=== PATIENT | male | born 1985 | race Caucasian/White ===

== ENCOUNTER 2017-11-14 21:02 | Emergency (ER) | payer BC ==
[2017-11-14] MEDS ORDERED: Famotidine 20 MG/2 ML SDV IVPUSH ONE (21:33)
--- NOTE | 2017-11-14 21:33 | EDM.PDOC ---
ED HPI GENERAL MEDICAL PROBLEM - General Chief Complaint: Allergic Reaction Stated Complaint: HIVES, SWOLLEN FINGERS AND LIPS- ALLERGIC REACTION Time Seen by Provider: 11/14/17 21:28 Source of Information: Reports: Patient History Limitations: Reports: No Limitations - History of Present Illness INITIAL COMMENTS - FREE TEXT/NARRATIVE: HISTORY AND PHYSICAL: History of present illness: Patient is a 32-year-old male who presents to the emergency room today with complaints of allergic reaction. Patient states that yesterday after eating supper he noticed some hives to his forearms bilaterally, abdomen and upper thighs. He has been using Benadryl to help alleviate his symptoms. He states that this did help "somewhat". Today after eating supper again he had some tightness/swelling sensation to his bilateral hands and tingling to his lips. He denies any difficulty breathing, it she throat or shortness of breath. He denies any fever, chills, chest pain, abdominal pain, nausea, vomiting, diarrhea or constipation. He does not take any prescribed medication and has only used Benadryl [id number]. Has had no new exposures and has no known food allergies. Review of systems: As per history of present illness and below otherwise all systems reviewed and negative. Past medical history: As per history of present illness and as reviewed below otherwise noncontributory. Surgical history: As per history of present illness and as reviewed below otherwise noncontributory. Social history: No reported history of drug or alcohol abuse. Family history: As per history of present illness and as reviewed below otherwise noncontributory. Physical exam: General: Well-developed and well-nourished 32-year-old male. Alert and oriented. Nontoxic appearing and in no acute distress. HEENT: Atraumatic, normocephalic, pupils equal and reactive bilaterally, negative for conjunctival pallor or scleral icterus, mucous membranes moist, throat clear, neck supple, nontender, trachea midline. No drooling or trismus noted. No meningeal signs Lungs: Clear to auscultation, breath sounds equal bilaterally, chest nontender. Heart: S1S2, regular rate and rhythm without overt murmur Abdomen: Soft, nondistended, nontender. Negative for masses or hepatosplenomegaly. Negative for costovertebral tenderness. Pelvis: Stable nontender. Genitourinary: Deferred. Rectal: Deferred. Skin: Nonspecific hive-like rash noted to the forearm bilaterally. Intact, warm , dry. No lesions noted. Extremities: Atraumatic, moves all extremities per self without difficulty or deficits. He is negative for cords or calf pain. Neurovascular unremarkable. Neuro: Awake, alert, oriented. Cranial nerves II through XII unremarkable. Cerebellum unremarkable. Motor and sensory unremarkable throughout. Exam nonfocal. Notes: Patient recently took 50 mg of Benadryl prior to arrival. I will give him some IV Solu-Medrol, Pepcid and IV fluids. His vital signs are stable. Oxygen saturation is within normal limits. Lung sounds are clear. Recently had 'Hand Foot and Mouth' - was not taking any medications for this. We'll give patient a Medrol Dosepak. We reviewed signs and symptoms that he should continue to observe for. Encouraged him to follow up with his primary care provider for further evaluation and management. He is agreeable to plan of care. He denies any further questions or concerns at this time. Diagnostics: [] Therapeutics: IV fluid, Pepcid, Solu-Medrol Impression: Hives Plan: 1. Please continue with Benadryl and [id number] Zantac as directed. 2. Take the Medrol dosepak as prescribed. 3. Avoid any hot showers as this may cause increased itching. 4. Continue to monitor for possible source of the allergic reaction. 5. Follow-up with your primary care provider in the next 1-2 days. Return to the ED as needed and as discussed. Definitive disposition and diagnosis as appropriate pending reevaluation and review of above. - Related Data Allergies Allergy/AdvReac Type Severity Reaction Status Date / Time No Known Allergies Allergy Verified 11/14/17 21:18 Home Meds: Home Meds . [No Known Home Meds] 11/14/17 [History] Past Medical History Musculoskeletal History: Reports: None - Past Surgical History Other Musculoskeletal Surgeries/Procedures:: left hand Social & Family History - Family History Family Medical History: Noncontributory - Tobacco Use Smoking Status *Q: Never Smoker Second Hand Smoke Exposure: No - Caffeine Use Caffeine Use: Reports: Coffee, Tea - Recreational Drug Use Recreational Drug Use: No ED ROS ALLERGIC REACTION - Review of Systems Review Of Systems: ROS reveals no pertinent complaints other than HPI. ED EXAM GENERAL NO PERIP PULSE - Physical Exam Exam: See Below (See dictation) Course - Vital Signs Last Recorded V/S: Last Vital Signs Temp 98.1 F 11/14/17 21:14 Pulse 94 11/14/17 21:14 Resp 18 11/14/17 21:14 BP 132/88 11/14/17 21:14 Pulse Ox 96 11/14/17 21:14 - Orders/Labs/Meds Orders: Active Orders 24 hr Category Date Time Status Sodium Chloride 0.9% [Normal Saline] 500 ml Med 11/14/17 21:45 Active IV STAT methylPREDNISolone Sod Succ [Solu-MEDROL] Med 11/14/17 21:45 Once 125 mg IVPUSH ONETIME ONE Medication Orders Sodium Chloride (Normal Saline) 500 mls @ 999 mls/hr IV STAT LEORA Methylprednisolone Sodium Succinate (Solu-Medrol) 125 mg IVPUSH ONETIME ONE Stop: 11/14/17 21:46 Meds: Medications Generic Name Dose Route Start Last Admin Trade Name Freq PRN Reason Stop Dose Admin Sodium Chloride 500 mls @ 999 mls/hr 11/14/17 21:45 Normal Saline IV STAT LEORA Methylprednisolone Sodium Succinate 125 mg 11/14/17 21:45 Solu-Medrol IVPUSH 11/14/17 21:46 ONETIME ONE Discontinued Medications Generic Name Dose Route Start Last Admin Trade Name Freq PRN Reason Stop Dose Admin Famotidine 20 mg 11/14/17 21:33 Pepcid IVPUSH 11/14/17 21:34 ONETIME ONE Departure - Departure Time of Disposition: 21:46 Disposition: Home, Self-Care 01 Clinical Impression: Hives - Discharge Information Referrals: PCP,None [Primary Care Provider] - Additional Instructions: The following information is given to patients seen in the emergency department who are being discharged to home. This information is to outline your options for follow-up care. We provide all patients seen in our emergency department with a follow-up referral. The need for follow-up, as well as the timing and circumstances, are variable depending upon the specifics of your emergency department visit. If you don't have a primary care physician on staff, we will provide you with a referral. We always advise you to contact your personal physician following an emergency department visit to inform them of the circumstance of the visit and for follow-up with them and/or the need for any referrals to a consulting specialist. The emergency department will also refer you to a specialist when appropriate. This referral assures that you have the opportunity for follow-up care with a specialist. All of these measure are taken in an effort to provide you with optimal care, which includes your follow-up. Under all circumstances we always encourage you to contact your private physician who remains a resource for coordinating your care. When calling for follow-up care, please make the office aware that this follow-up is from your recent emergency room visit. If for any reason you are refused follow-up, please contact the [facility] Emergency Department at and asked to speak to the emergency department charge nurse. [facility] [address] [place] [id number] 1. Please continue with Benadryl and [id number] Zantac as directed. 2. Take the Medrol dosepak as prescribed. 3. Avoid any hot showers as this may cause increased itching. 4. Continue to monitor for possible source of the allergic reaction. 5. Follow-up with your primary care provider in the next 1-2 days. Return to the ED as needed and as discussed. - My Orders Last 24 Hours: My Active Orders 11/14/17 21:45 Sodium Chloride 0.9% [Normal Saline] 500 ml IV STAT methylPREDNISolone Sod Succ [Solu-MEDROL] 125 mg IVPUSH ONETIME ONE - Assessment/Plan Last 24 Hours: My Active Orders 11/14/17 21:45 Sodium Chloride 0.9% [Normal Saline] 500 ml IV STAT methylPREDNISolone Sod Succ [Solu-MEDROL] 125 mg IVPUSH ONETIME ONE
[2017-11-14] MEDS ORDERED: methylPREDNISolone Sodium Succinate 125 MG/2 ML SDV IVPUSH ONE (21:45)
[2017-11-14] MEDS ORDERED: Sodium Chloride 0.9% 500 ML IV SCH (21:45)
== END 2017-11-14 22:57 | disposition home or self-care (01) ==
LOC: MW.ED 21:02
DX: L50.9 Urticaria, unspecified (principal)
CPT/HCPCS: 96361; 96374; 96375; 99282; J2930; J7040; 99283

== ENCOUNTER 2017-12-10 20:57 | Emergency (ER) | payer BC ==
--- NOTE | 2017-12-10 21:00 | EDM.PDOC ---
ED HPI GENERAL MEDICAL PROBLEM - General Stated Complaint: FEVER AND COUPH Time Seen by Provider: 12/10/17 20:59 Source of Information: Reports: Patient History Limitations: Reports: No Limitations - History of Present Illness INITIAL COMMENTS - FREE TEXT/NARRATIVE: HISTORY AND PHYSICAL: History of present illness: 32 yo male presenting to the emergency department with chief complaint of cough , fever, and generalized fatigue 3 days. Patient states for the past month he has not been feeling well. 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 States that he did get kzmy-hjnh-tku-mouth disease 1 month ago. He seemed to have gotten better after that however has not fully recovered. Approximately 3 days ago he began to feel much worse. He has had a dry cough, headache, fever, and some intermittent diarrhea. He denies any nausea and vomiting. States that it's on Monday he felt feverish but went to work. When he got home from work he went to bed and slept for almost 22 hours. He felt significant fatigue since then. He denies any dysuria, hematuria, abdominal pain, bloody stool, or dark tarry stools, neck pain/nuchal rigidity and is up to date on vaccinations. Denies any chest pain, palpitations, shortness of breath, syncopal episodes, or focal neurologic deficits. His is not been having similar symptoms. Denies any recent foreign travel or camping. He has been using NyQuil as well as Mucinex and [place] cold with little relief. On initial exam patient is clammy and warm. There is some mild decrease in breath sounds in the left lower lobe. No nuchal rigidity noted. Otherwise benign exam. Patient was found to have a temperature 102.4 and 1000 mg of Tylenol were given. Review of systems: As per history of present illness and below otherwise all systems reviewed and negative. Past medical history: As per history of present illness and as reviewed below otherwise noncontributory. Surgical history: As per history of present illness and as reviewed below otherwise noncontributory. Social history: No reported history of drug or alcohol abuse. Family history: As per history of present illness and as reviewed below otherwise noncontributory. Physical exam: HEENT: Atraumatic, normocephalic, pupils reactive, negative for conjunctival pallor or scleral icterus, mucous membranes moist, throat clear, neck supple, nontender, trachea midline. Lungs: Lower lobe crackles, breath sounds equal bilaterally, chest nontender. Heart: S1S2, regular, negative for clicks, rubs, or JVD. Abdomen: Soft, nondistended, nontender. Negative for masses or hepatosplenomegaly. Negative for costovertebral tenderness. Pelvis: Stable nontender. Genitourinary: Deferred. Rectal: Deferred. Extremities: Atraumatic, negative for cords or calf pain. Neurovascular unremarkable. Neuro: Awake, alert, oriented. Cranial nerves II through XII unremarkable. Cerebellum unremarkable. Motor and sensory unremarkable throughout. Exam nonfocal. Diagnostics: CBC, CMP, chest x-ray, lactate, UA/UC Therapeutics: 1 L normal saline 1, Tylenol 1000 mg by mouth 1 Impression: Left lower lobe pneumonia community-acquired Plan: Chest x-ray did reveal a left lower lobe airspace disease consistent with pneumonia and this correlated with exam findings. CBC showed no leukocytosis this may be a viral pneumonia however I did give the patient 1 g of Rocephin as well as a prescription for azithromycin for suspected community acquired pneumonia. Lactate as well as CMP were unremarkable. Patient was discharged in good condition with instructions to follow-up with her primary care provider. I did give the patient numbers to reach them and follow-up early next week. Patient was discharged in good condition with instructions to return to emergency department if he had any new or worsening symptoms. Definitive disposition and diagnosis as appropriate pending reevaluation and review of above. head Pain Score (Numeric/FACES): 4 - Related Data Allergies Allergy/AdvReac Type Severity Reaction Status Date / Time Penicillins Allergy Cannot Verified 12/10/17 21:24 Remember Home Meds: Home Meds . [No Known Home Meds] 12/10/17 [History] Past Medical History Musculoskeletal History: Reports: None - Past Surgical History Other Musculoskeletal Surgeries/Procedures:: left hand Social & Family History - Family History Family Medical History: Noncontributory - Caffeine Use Caffeine Use: Reports: Coffee, Tea ED ROS GENERAL - Review of Systems Review Of Systems: ROS reveals no pertinent complaints other than HPI. ED EXAM, GENERAL - Physical Exam Exam: See Below Course - Vital Signs Last Recorded V/S: Last Vital Signs Temp 102.3 F H 12/10/17 21:33 Pulse 106 H 12/10/17 20:57 Resp 18 12/10/17 20:57 BP 136/92 H 12/10/17 20:57 Pulse Ox 94 L 12/10/17 20:57 - Orders/Labs/Meds Orders: Active Orders 24 hr Category Date Time Status Chest 2V [CR] Stat Exams 12/10/17 21:31 Taken CULTURE URINE [RM] Stat Lab 12/10/17 22:25 Ordered UA W/MICROSCOPIC [URIN] Stat Lab 12/10/17 22:25 Ordered cefTRIAXone [Rocephin in Dextrose,Iso-Osm 1 GM/50 ML] 1 Med 12/10/17 22:35 Active gm Premix Bag 1 bag IV ONETIME Medication Orders Ceftriaxone Sodium/Dextrose 1 (gm/ Premix) 50 mls @ 100 mls/hr IV ONETIME ONE Stop: 12/10/17 23:04 Last Admin: 12/10/17 22:41 Dose: 100 mls/hr Labs: Laboratory Tests 12/10/17 12/10/17 12/10/17 Range/Units 21:30 21:30 21:30 WBC 7.93 (4.0-11.0) K/uL RBC 5.01 (4.50-5.90) M/uL Hgb 15.1 (13.0-17.0) g/dL Hct 42.8 (38.0-50.0) % MCV 85.4 (80.0-98.0) fL MCH 30.1 (27.0-32.0) pg MCHC 35.3 (31.0-37.0) g/dL RDW Std Deviation 38.0 (28.0-62.0) fl RDW Coeff of Ravinder 12 (11.0-15.0) % Plt Count 195 (150-400) K/uL MPV 9.00 (7.40-12.00) fL Neut % (Auto) 62.7 (48.0-80.0) % Lymph % (Auto) 25.5 (16.0-40.0) % Preston % (Auto) 9.6 (0.0-15.0) % Eos % (Auto) 1.6 (0.0-7.0) % Baso % (Auto) 0.6 (0.0-1.5) % Neut # (Auto) 5.0 (1.4-5.7) K/uL Lymph # (Auto) 2.0 (0.6-2.4) K/uL Preston # (Auto) 0.8 (0.0-0.8) K/uL Eos # (Auto) 0.1 (0.0-0.7) K/uL Baso # (Auto) 0.1 (0.0-0.1) K/uL Nucleated RBC % 0.0 /100WBC Nucleated RBCs # 0 K/uL Lactate 0.9 (0.20-2.00) mmol/L Sodium 135 L (136-148) mmol/L Potassium 3.8 (3.5-5.1) mmol/L Chloride 102 (98-107) mmol/L Carbon Dioxide 26.1 (21.0-32.0) mmol/L BUN 13 (7.0-18.0) mg/dL Creatinine 1.1 (0.8-1.3) mg/dL Est Cr Clr Drug Dosing 104.58 mL/min Estimated GFR (MDRD) > 60.0 ml/min Glucose 108 H (74-106) mg/dL Calcium 8.8 (8.5-10.1) mg/dL Total Bilirubin 0.7 (0.2-1.0) mg/dL AST 40 H (15-37) IU/L ALT 88 H (14-63) IU/L Alkaline Phosphatase 98 (46-116) U/L Total Protein 7.5 (6.4-8.2) g/dL Albumin 3.7 (3.4-5.0) g/dL Globulin 3.8 H (2.0-3.5) g/dL Albumin/Globulin Ratio 1.0 L (1.3-2.8) Urine Color Urine Appearance Urine pH (5.0-8.0) Ur Specific [place] (1.001-1.035) Urine Protein (NEGATIVE) mg/dL Urine Glucose (UA) (NEGATIVE) mg/dL Urine Ketones (NEGATIVE) mg/dL Urine Occult Blood (NEGATIVE) Urine Nitrite (NEGATIVE) Urine Bilirubin (NEGATIVE) Urine Urobilinogen (<2.0) EU/dL Ur Leukocyte Esterase (NEGATIVE) Urine RBC (0-2/HPF) Urine WBC (0-5/HPF) Ur Epithelial Cells (NONE-FEW) Urine Bacteria (NEGATIVE) 12/10/17 Range/Units 22:25 WBC (4.0-11.0) K/uL RBC (4.50-5.90) M/uL Hgb (13.0-17.0) g/dL Hct (38.0-50.0) % MCV (80.0-98.0) fL MCH (27.0-32.0) pg MCHC (31.0-37.0) g/dL RDW Std Deviation (28.0-62.0) fl RDW Coeff of Ravinder (11.0-15.0) % Plt Count (150-400) K/uL MPV (7.40-12.00) fL Neut % (Auto) (48.0-80.0) % Lymph % (Auto) (16.0-40.0) % Preston % (Auto) (0.0-15.0) % Eos % (Auto) (0.0-7.0) % Baso % (Auto) (0.0-1.5) % Neut # (Auto) (1.4-5.7) K/uL Lymph # (Auto) (0.6-2.4) K/uL Preston # (Auto) (0.0-0.8) K/uL Eos # (Auto) (0.0-0.7) K/uL Baso # (Auto) (0.0-0.1) K/uL Nucleated RBC % /100WBC Nucleated RBCs # K/uL Lactate (0.20-2.00) mmol/L Sodium (136-148) mmol/L Potassium (3.5-5.1) mmol/L Chloride (98-107) mmol/L Carbon Dioxide (21.0-32.0) mmol/L BUN (7.0-18.0) mg/dL Creatinine (0.8-1.3) mg/dL Est Cr Clr Drug Dosing mL/min Estimated GFR (MDRD) ml/min Glucose (74-106) mg/dL Calcium (8.5-10.1) mg/dL Total Bilirubin (0.2-1.0) mg/dL AST (15-37) IU/L ALT (14-63) IU/L Alkaline Phosphatase (46-116) U/L Total Protein (6.4-8.2) g/dL Albumin (3.4-5.0) g/dL Globulin (2.0-3.5) g/dL Albumin/Globulin Ratio (1.3-2.8) Urine Color YELLOW Urine Appearance CLEAR Urine pH 6.0 (5.0-8.0) Ur Specific [place] <= 1.005 (1.001-1.035) Urine Protein NEGATIVE (NEGATIVE) mg/dL Urine Glucose (UA) NEGATIVE (NEGATIVE) mg/dL Urine Ketones NEGATIVE (NEGATIVE) mg/dL Urine Occult Blood TRACE-INTACT (NEGATIVE) Urine Nitrite NEGATIVE (NEGATIVE) Urine Bilirubin NEGATIVE (NEGATIVE) Urine Urobilinogen 0.2 (<2.0) EU/dL Ur Leukocyte Esterase NEGATIVE (NEGATIVE) Urine RBC 0-2 (0-2/HPF) Urine WBC 0-1 (0-5/HPF) Ur Epithelial Cells RARE (NONE-FEW) Urine Bacteria FEW (NEGATIVE) Meds: Medications Generic Name Dose Route Start Last Admin Trade Name Freq PRN Reason Stop Dose Admin Ceftriaxone Sodium/Dextrose 1 50 mls @ 100 mls/hr 12/10/17 22:35 12/10/17 22: 41 gm/ Premix IV 12/10/17 23:04 100 mls/hr ONETIME ONE Administration Discontinued Medications Generic Name Dose Route Start Last Admin Trade Name Freq PRN Reason Stop Dose Admin Acetaminophen 1,000 mg 12/10/17 21:20 12/10/17 21:33 Tylenol Extra Strength PO 12/10/17 21:21 1,000 mg ONETIME ONE Administration Sodium Chloride 1,000 mls @ 999 mls/hr 12/10/17 21:32 12/10/17 21:33 Normal Saline IV 12/10/17 22:32 999 mls/hr STAT ONE Administration Departure - Departure Time of Disposition: 23:06 Disposition: Home, Self-Care 01 Condition: Good Clinical Impression: Community acquired bacterial pneumonia - Discharge Information Referrals: PCP,None [Primary Care Provider] - Additional Instructions: My general discharge The following information is given to patients seen in the emergency department who are being discharged to home. This information is to outline your options for follow-up care. We provide all patients seen in our emergency department with a follow-up referral. The need for follow-up, as well as the timing and circumstances, are variable depending upon the specifics of your emergency department visit. If you don't have a primary care physician on staff, we will provide you with a referral. We always advise you to contact your personal physician following an emergency department visit to inform them of the circumstance of the visit and for follow-up with them and/or the need for any referrals to a consulting specialist. The emergency department will also refer you to a specialist when appropriate. This referral assures that you have the opportunity for follow-up care with a specialist. All of these measure are taken in an effort to provide you with optimal care, which includes your follow-up. Under all circumstances we always encourage you to contact your private physician who remains a resource for coordinating your care. When calling for follow-up care, please make the office aware that this follow-up is from your recent emergency room visit. If for any reason you are refused follow-up, please contact the [facility] Emergency Department at and asked to speak to the emergency department charge nurse. [facility] [address] [place], [place] [id number] [place] [address] Please call 1 of the above numbers above and follow up with a primary care provider. Be sure to tell them that you were seen in the emergency department and they wish for you to be seen as soon as possible. Take medication as prescribed. Return emergency department if any new or worsening symptoms as we discussed. - My Orders Last 24 Hours: My Active Orders 12/10/17 21:31 Chest 2V [CR] Stat 12/10/17 22:25 CULTURE URINE [RM] Stat UA W/MICROSCOPIC [URIN] Stat 12/10/17 22:35 cefTRIAXone [Rocephin in Dextrose,Iso-Osm 1 GM/50 ML] 1 gm Premix Bag 1 bag IV ONETIME - Assessment/Plan Last 24 Hours: My Active Orders 12/10/17 21:31 Chest 2V [CR] Stat 12/10/17 22:25 CULTURE URINE [RM] Stat UA W/MICROSCOPIC [URIN] Stat 12/10/17 22:35 cefTRIAXone [Rocephin in Dextrose,Iso-Osm 1 GM/50 ML] 1 gm Premix Bag 1 bag IV ONETIME
[2017-12-10] MEDS ORDERED: Acetaminophen 500 MG Tab PO ONE (21:20)
[2017-12-10] MEDS ORDERED: Sodium Chloride 0.9% 1,000 ML IV ONE (21:32)
[2017-12-10 22:15] LABS: CHLORIDE,CL 102 mmol/L (98-107); SODIUM,NA 135 mmol/L (136-148)
[2017-12-10] MEDS ORDERED: cefTRIAXone 1 GM in Premix Bag 1 BAG IV ONE (22:35)
--- NOTE | 2017-12-11 15:03 | CR ---
EXAM DATE: 12/10/17 PATIENT'S AGE: 32 Patient: RUBY RIOJAS Facility: [place], [place] Site . Site : [id number] Study: XRay Chest [id number]/[id number] 9:59:18 PM Ordering Physician: Darnell Marvin Final Report: HISTORY: Cough. TECHNIQUE: Two-view chest. COMPARISON: None. FINDINGS: Ill-defined airspace opacity in the basilar left lower lobe. No focal consolidation on the right. Calcified granuloma in the right upper lobe. No pleural effusion or pneumothorax. Pulmonary vasculature is within normal limits. Cardiomediastinal silhouette is within normal limits. IMPRESSION: Left lower lobe airspace disease compatible with pneumonia. Recommend follow-up to resolution. Dictated by Jame Hernandez MD @ Dec 10 2017 10:20PM (Electronic Signature) Report Signed by Proxy. E[facility]
== END 2017-12-10 23:15 | disposition home or self-care (01) ==
LOC: MW.ED 20:57
DX: J18.9 Pneumonia, unspecified organism (principal); Z88.0 Allergy status to penicillin
CPT/HCPCS: 36415; 71046; 80053; 81001; 83605; 85025; 87086; 96361; 96365; 99284; A9270; J0696; J7040; 99283